=== PATIENT | male | born 1965 | race Caucasian/White ===

== ENCOUNTER 2017-01-28 18:27 | Emergency (ER) | payer SELFPAY ==
[~2017-01-28] VITALS: Ht 182.9 cm; Wt 89.2 kg
[2017-01-28 18:34] VITALS: BP 108/69
[2017-01-28] MEDS ORDERED: LIDOCAINE 1%, 20ML INFIL ONE (20:00)
[2017-01-28] MEDS ORDERED: BACITRACIN ZINC OINT 500U/GM, 0.9 GM ONE (21:06)
== END 2017-01-28 21:14 | disposition home or self-care (01) ==
LOC: ED 20:50
DX: S61.451A Open bite of right hand, initial encounter (principal); S61.452A Open bite of left hand, initial encounter; G89.11 Acute pain due to trauma; J45.909 Unspecified asthma, uncomplicated; W54.0XXA Bitten by dog, initial encounter; Y93.89 Activity, other specified; Y92.410 Unspecified street and highway as the place of occurrence of the external cause; Y99.8 Other external cause status
CPT/HCPCS: 12004

== ENCOUNTER 2017-02-08 14:25 | Emergency (ER) | payer OTHER ==
[~2017-02-08] VITALS: Ht 182.9 cm; Wt 90.5 kg
[2017-02-08 14:27] VITALS: BP 153/92
== END 2017-02-08 15:57 | disposition home or self-care (01) ==
LOC: ED 15:48
DX: Z48.02 Encounter for removal of sutures (principal)
CPT/HCPCS: 99281

== ENCOUNTER 2018-04-05 | Emergency (ER) | payer MEDICAID ==
[~2018-04-05] VITALS: Ht 182.9 cm; Wt 95.2 kg
--- NOTE | 2018-04-05 00:14 | NUR ---
MD TO BEDSIDE FOR PT EVAL. PT TO HAVE BREATHING TX, XRAY, AND LABS.
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
--- NOTE | 2018-04-05 00:21 | NUR ---
PT TO XRAY WITH STEADY GAIT.
[2018-04-05] MEDS ORDERED: ALBUTEROL/IPRATROPIUM 2.5MG/0.5MG, 3 ML ONE (00:25)
[2018-04-05] MEDS ORDERED: ALBUTEROL/IPRATROPIUM 2.5MG/0.5MG, 3 ML NPPB SCH (00:30)
--- NOTE | 2018-04-05 00:30 | NUR ---
RT AT BEDSIDE, PT RECIEVEING BREATHING TX. PT RECIEVED PREDNISONE PER ORDERS, SEE EMAR. PT TOLERATING BREATHING TX WELL. WILL MONITOR.
[2018-04-05 00:31] LABS: BASOPHILS # (AUTO) 0.05 x10^3/uL (0-0.1); BASOPHILS % (AUTO) 1 % (0-1); EOSINOPHILS # (AUTO) 0.46 x10^3/uL (0-0.4); EOSINOPHILS % (AUTO) 5 % (1-7); LYMPHOCYTES # (AUTO) 3.98 x10^3/uL (1-3.4); LYMPHOCYTES % (AUTO) 44 % (22-44); MD NO; MEAN CORPUSCULAR HEMOGLOBIN 31.4 pg (27.5-34.5); MEAN CORPUSCULAR HGB CONC 34.6 g/dL (33.2-36.2); MEAN CORPUSCULAR VOLUME 90.8 fL (81-97); MEAN PLATELET VOLUME 6.6 fL (7.4-10.4); MONOCYTES # (AUTO) 0.69 x10^3/uL (0.2-0.8); MONOCYTES % (AUTO) 8 % (2-9); NEUTROPHILS % (AUTO) 42 % (42-75); PLATELET COUNT 331 x10^3/uL (130-400); RED BLOOD COUNT 5.06 x10^6/uL (4.38-5.82)
--- NOTE | 2018-04-05 00:36 | NUR ---
BREATHING TX COMPLETE.
[2018-04-05 00:54] LABS: ALBUMIN 3.8 g/dL (3.4-5.0); ANION GAP 7 mmol/L (5-15); CALCIUM 8.9 mg/dL (8.5-10.1); CHLORIDE 110 mmol/L (98-107); CREATININE 0.81 mg/dL (0.7-1.3)
[2018-04-05 00:58] LABS: TROPONIN I < 0.015 ng/mL (0.000-0.045)
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
--- NOTE | 2018-04-05 01:36 | NUR ---
REPORT FROM LINDSAY LUTHER.
[2018-04-05 01:44] VITALS: BP 134/83
== END 2018-04-05 01:46 | disposition home or self-care (01) ==
LOC: ED 00:27
DX: J45.41 Moderate persistent asthma with (acute) exacerbation (principal); I10 Essential (primary) hypertension; E11.9 Type 2 diabetes mellitus without complications
CPT/HCPCS: 36415; 71046; 80048; 82040; 83880; 84484; 85025; 93005; 94640; 99284; J7512; J7620

== ENCOUNTER 2019-05-03 09:21 | Emergency (ER) | payer SELFPAY ==
[~2019-05-03] VITALS: Ht 177.8 cm; Wt 93.9 kg
[2019-05-03 09:24] VITALS: BP 148/97
== END 2019-05-03 10:16 | disposition home or self-care (01) ==
LOC: ED 10:00
DX: H60.502 Unspecified acute noninfective otitis externa, left ear (principal); I10 Essential (primary) hypertension; E11.9 Type 2 diabetes mellitus without complications; J45.909 Unspecified asthma, uncomplicated
CPT/HCPCS: 99283

== ENCOUNTER 2019-12-25 21:44 | Emergency (ER) | payer MEDICAID ==
[~2019-12-25] VITALS: Ht 182.9 cm; Wt 88.3 kg
[2019-12-25] MEDS ORDERED: LIDOCAINE-MPF 1%, 5ML INFIL ONE (22:00)
[2019-12-25] MEDS ORDERED: IBUPROFEN 600 MG TABLET PO ONE (22:00)
[2019-12-25] MEDS ORDERED: IBUPROFEN 600 MG TABLET ONE ×2 (22:10→22:15)
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
[2019-12-25] MEDS ORDERED: LIDOCAINE-MPF 2% ,5ML ONE (22:11)
--- NOTE | 2019-12-25 22:21 | NUR ---
Traveled to [place] with atmospheric technician
--- NOTE | 2019-12-25 22:29 | NUR ---
Pt will not use urinal at bedside. Insists on ambulating to bathroom without staff assist
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
--- NOTE | 2019-12-25 23:00 | NUR ---
Provider at bedside
[2019-12-25 23:20] VITALS: BP 124/78
== END 2019-12-25 23:22 | disposition home or self-care (01) ==
LOC: ED 23:00
DX: S06.0X0A Concussion without loss of consciousness, initial encounter (principal); S01.111A Laceration without foreign body of right eyelid and periocular area, initial encounter; I10 Essential (primary) hypertension; E11.9 Type 2 diabetes mellitus without complications; J45.909 Unspecified asthma, uncomplicated; Z90.89 Acquired absence of other organs; Y04.8XXA Assault by other bodily force, initial encounter; Y93.89 Activity, other specified; Y92.410 Unspecified street and highway as the place of occurrence of the external cause; Y99.8 Other external cause status
CPT/HCPCS: 70450; 72125; 99285